=== PATIENT | female | born 1990 | race Caucasian/White ===

== ENCOUNTER 2019-01-16 23:03 | Emergency (ER) | payer OTHER, SELFPAY ==
[2019-01-16 23:05] VITALS: BP 166/104; PULSE 80; RESP 20; TEMP 36.8; O2SAT 100
--- NOTE | 2019-01-16 23:21 | ED.GENADULT ---
HPI - General Adult General Chief complaint: Abdominal Pain Stated complaint: poss allergic reaction to PLan B pill Time Seen by Provider: 01/16/19 23:04 Source: patient Mode of arrival: ambulatory Limitations: no limitations History of Present Illness HPI narrative: 28-year-old female took Plan B 3 days ago approximately 6 hours after having unprotected intercourse. Has had some cramping since then but no vaginal bleeding. Today she was having chills, body aches, not feeling well. She states she has taken a test since then they all have been negative. No urinary symptoms. Review of Systems Constitutional Reports chills, Reports fever(s) (Subjective), Denies headache(s) and Reports lethargy ENT Ears, Nose, Mouth, and Throat: Denies headache(s), Denies sinus pressure and Denies sore throat Cardiovascular Denies chest pain and Denies dyspnea Respiratory Denies dyspnea Gastrointestinal Gastrointestinal: Reports abdominal pain, Denies change in stool character, Reports cramping, Denies nausea and Denies vomiting Genitourinary Denies dysuria and Denies vaginal discharge Comments: Lower abdominal cramping Musculoskeletal Denies myalgias and Denies arthralgias Integumentary/Breasts Denies rash Neurologic Denies behavioral changes and Denies headache(s) Psychiatric Denies behavioral changes Hematologic/Lymphatic Denies easy bleeding and Denies easy bruising [facility] Medical History (Updated 01/17/19 @ 00:16 by Pola Dorsey DO) Patient denies medical problems (Acute) Surgical History No pertinent past surgical history (Acute) Social History Smoking Status: Current some day smoker Social History Smoking Status: Current some day smoker Exam Initial Vital Signs Initial Vital Signs: Vital Signs Temperature 98.2 F 01/16/19 23:05 Pulse Rate 80 01/16/19 23:05 Respiratory Rate 20 01/16/19 23:05 Blood Pressure 166/104 H 01/16/19 23:05 Pulse Oximetry 100 01/16/19 23:05 Const General: cooperative, well developed, well groomed and No acute distress Orientation: alert and awake HENMT Head: normal to inspection and normocephalic Ears: TM's normal bilaterally Mouth: oral mucosae normal Throat: posterior oropharynx normal Resp Effort & Inspection: normal respiratory effort Auscultation: clear to auscultation bilaterally Cardio Rate: regular rate Rhythm: regular rhythm Skin Lesions: no lesions Rashes: no rashes Neuro General: alert and awake Cognition: normal cognition Speech: speech normal Extrem General: normal to inspection and capillary refill normal Psych Appearance: grossly normal and well kempt Course Orders Ordered: ED Orders 01/16/19 23:25 HCG Quantitative Stat Vital Signs - 8 hr 01/16/19 23:05 Temperature 98.2 F Pulse Rate 80 Respiratory Rate 20 Blood Pressure 166/104 H Pulse Oximetry 100 Medical Decision Making Lab Data Lab results reviewed: Yes I reviewed the patient's lab results. Lab Results 01/16/19 Range/Units 23:25 HCG, Quant < 2.39 mIU/mL MDM Narrative Medical decision making narrative: HCG quant was negative. I informed her that the abdominal cramping is most likely result of the Plan B. Informed her that it would not be surprised if she starts to have some vaginal bleeding over the next day or so. Her presenting symptoms are vague in nature. She has no other signs of infection. Will hold on further workup for now. Patient was given return precautions. She expressed understanding and agreement plan. Discharge Plan Departure Patient Disposition: Home Clinical Impression: Abdominal cramping Instructions: Home and Clinic Tests Activity Restrictions/Additional Instructions: Recommend you contact your primary care doctor for follow-up. Return to the emergency department for any new or worsening symptoms
[2019-01-17 00:09] LABS: HCG Quantitative /Beta subunit < 2.39 mIU/mL
[2019-01-17 00:30] VITALS: BP 146/98; PULSE 80; RESP 18; O2SAT 97
== END 2019-01-17 00:30 | disposition home or self-care (01) ==
PROVIDERS: Emergency Provider Emergency Medicine
DX: R10.9 Unspecified abdominal pain (principal)
CPT/HCPCS: 36415; 84702; 99282

== ENCOUNTER 2019-04-24 15:07 | Emergency (ER) | payer OTHER, SELFPAY ==
[2019-04-24 15:20] VITALS: BP 160/94; PULSE 96; RESP 15; TEMP 36.9; O2SAT 99; BMI 36.9
--- NOTE | 2019-04-24 15:50 | ED.UPPEXIN ---
HPI - Extremity Injury (Upper) <JONH Mchugh - Last Filed: 04/24/19 16:25> General Chief Complaint: Extremity Injury, Upper Stated Complaint: SORE FINGER Time Seen by Provider: 04/24/19 15:32 Source: patient Mode of arrival: Ambulatory Limitations: no limitations History of Present Illness HPI narrative: The patient is a 28-year-old female current smoker who presents with a chief complaint of finger pain. Pain and swelling of her 3rd finger on the left side. She states happened several days ago. She rinsed it under cold water. She took ibuprofen last night. Denies any fevers nausea vomiting or diarrhea. She states that she can bend her finger, but it hurts because of the swelling at the tip. Related Data Home Medications Medication Instructions Recorded Confirmed clonidine HCl 0.1 mg PO DAILY 04/24/19 04/24/19 dextroamphetamine-amphetamine 20 mg PO DAILY 04/24/19 04/24/19 escitalopram oxalate 10 mg PO BEDTIME 04/24/19 04/24/19 norelgestromin-ethin.estradiol 1 patch TOPICAL QWEEK 04/24/19 04/24/19 [Xulane] Allergies Allergy/AdvReac Type Severity Reaction Status Date / Time lorazepam [From Ativan] Allergy Verified 04/24/19 15:20 Review of Systems <[facility] - Last Filed: 04/24/19 16:25> Review of Systems Narrative: GENERAL: Denies chills, fatigue, malaise, fever, sweats. HEENT: Denies sinus pain, ear pain, sore throat, difficulty swallowing, dizziness. RESPIRATORY: Denies dyspnea, cough, wheezing, hemoptysis, sputum. CARDIOVASCULAR: Denies chest pain, palpitations, orthopnea, edema, GASTROINTESTINAL: Denies nausea, vomiting, abdominal pain, diarrhea, constipation, melena. : Denies dysuria, frequency, incontinence, hematuria, urinary retention. MUSCULOSKELETAL: See HPI SKIN: See HPI NEUROLOGIC: Denies weakness, headache, numbness, change in speech, confusion, seizures, incoordination. PSYCHIATRIC: No concerning psychosocial issues. 12 point review of systems is negative except for those stated above PFSH <JONH Mchugh - Last Filed: 04/24/19 16:25> Medical History Patient denies medical problems (Acute) Surgical History No pertinent past surgical history (Acute) Social History Smoking Status: Current some day smoker Social History Smoking Status: Current some day smoker Exam <GARCIA Mchugh - Last Filed: 04/24/19 16:25> Narrative Exam Narrative: GENERAL: This is a well-nourished, well-developed patient, in no acute distress HEAD: Atraumatic. Normocephalic. No temporal or scalp tenderness. EYES: Pupils equal round and reactive. Extraocular motions intact. No scleral icterus. No injection or drainage. ENT: Nose without bleeding, purulent drainage or septal hematoma. Throat without erythema, tonsillar hypertrophy or exudate. Uvula midline. Airway patent. NECK: Trachea midline. No JVD or lymphadenopathy. Supple, nontender, no meningeal signs. CARDIOVASCULAR: Regular rate and rhythm RESPIRATORY: No cough. No increased respiratory effort. No accessory muscle use. EXTREMITIES: Full range of motion noted left 3rd finger. Capillary refill less than 2 seconds. BACK: Nontender without deformity or crepitance. No flank tenderness. NEURO: AOx3. SKIN: paronychia noted medial aspect left 3rd finger Initial Vital Signs Initial Vital Signs: Vital Signs Temperature 98.4 F 04/24/19 15:20 Pulse Rate 96 H 04/24/19 15:20 Respiratory Rate 15 04/24/19 15:20 Blood Pressure 160/94 H 04/24/19 15:20 Pulse Oximetry 99 04/24/19 15:20 <Venita Mcgraw DO - Last Filed: 04/27/19 07:12> Initial Vital Signs Initial Vital Signs: Vital Signs Temperature 98.4 F 04/24/19 15:20 Pulse Rate 96 H 04/24/19 15:20 Respiratory Rate 15 04/24/19 15:20 Blood Pressure 160/94 H 04/24/19 15:20 Pulse Oximetry 99 04/24/19 15:20 Course <Devi Burnett, [employer]-BC - Last Filed: 04/24/19 16:25> Vital Signs Vital signs: Vital Signs - 8 hr 04/24/19 15:20 04/24/19 16:24 Temperature 98.4 F Pulse Rate 96 H 74 Respiratory Rate 15 16 Blood Pressure 160/94 H 116/72 Pulse Oximetry 99 97 <Venita DO Lucien - Last Filed: 04/27/19 07:12> Vital Signs Vital signs: Vital Signs - 8 hr 04/24/19 15:20 04/24/19 16:24 Temperature 98.4 F Pulse Rate 96 H 74 Respiratory Rate 15 16 Blood Pressure 160/94 H 116/72 Pulse Oximetry 99 97 MDM - Extremity Injury (Upper) <Devi VerdeVINCE singh-BC - Last Filed: 04/24/19 16:25> MDM Narrative Medical decision making narrative: The patient is a 28-year-old female who presents with short-term pain and swelling of her left 3rd finger. She is noted to have a bring he on exam. Attempted to drain it by needle puncture, but was not able to get anything out. Encouraged [id number] medications rest ice compression elevation. Encouraged copious soaks in warm Epsom salts. Discussed monitor for signs of worsening infection including fever, vomiting, diarrhea, decreased range of motion. Encourage PCP follow-up and discussed return precautions the emergency department including shortness of breath, chest pain, acute concerns. Discharge Plan Departure Patient Disposition: Home Clinical Impression: Paronychia Discharge Date/Time: 04/24/19 16:05 Instructions: DI for Paronychia Activity Restrictions/Additional Instructions: Please soak your acute finger warm Epson salts several times a day. Please use rest ice compression elevation. Please use [id number] pain medications as needed and able. Please follow up with primary care Provider in a few days. Please come back to the emergency department for any acute concerns such as chest pain, shortness of breath etc Prescriptions: No Action clonidine HCl 0.1 mg tablet 0.1 mg PO DAILY RF: 0 dextroamphetamine-amphetamine 20 mg capsule,extended release 24hr 20 mg PO DAILY RF: 0 Xulane 150-35 mcg/24 hr patch weekly 1 patch topical QWEEK RF: 0 escitalopram oxalate 10 mg tablet 10 mg PO BEDTIME RF: 0 [facility]
[2019-04-24 16:24] VITALS: BP 116/72; PULSE 74; RESP 16; O2SAT 97
== END 2019-04-24 16:05 | disposition home or self-care (01) ==
PROVIDERS: Emergency Provider Nurse Practitioner Family
DX: L03.012 Cellulitis of left finger (principal)
CPT/HCPCS: 99282

== ENCOUNTER 2019-05-27 16:23 | Emergency (ER) | payer OTHER, SELFPAY ==
[2019-05-27 16:30] VITALS: BP 148/80; PULSE 101; RESP 16; BMI 38.7
[2019-05-27 16:44] VITALS: PULSE 110; RESP 18; TEMP 35.8; O2SAT 98
--- NOTE | 2019-05-27 16:51 | DI.US.S_ITS ---
PROCEDURE: US PELVIC COMPLETE INDICATIONS: INTERMENSTRUAL HEAVY BLEEDING TECHNIQUE: Real-time scanning was performed of the pelvic organs, with image documentation. Additional endovaginal scanning was necessary due to incomplete visualization of the adnexal and endometrial structures by transabdominal scanning. COMPARISON: None. FINDINGS: Transabdominal scanning: Limited scanning through the kidneys shows no hydronephrosis. No pathologic free abdominal or pelvic fluid. Splenomegaly is incidentally noted measuring 15.4 cm. Endovaginal scanning: Uterus: Uterus is normal in size at 8.1 x 4.4 x 5.5 cm. The endometrium measures 5 mm in combined thickness. Incidental note is made of nabothian cysts. Hypoechoic uterine lesions are seen, which are attributed to fibroids. The largest 3 measure as follows: Right posterior, subserosal, 1.3 x 0.8 x 1.5 cm Mid uterus posterior, subserosal, 1.4 x 1.2 x 1.4 cm Mid uterus posterior, subserosal, 1.4 x 1.3 x 1.6 Ovaries: The right ovary measures 3 x 1.7 x 2.1 cm. The left ovary measures 3.9 x 2.2 x 2.8 cm. The ovaries have a normal sonographic appearance. No adnexal masses are seen. IMPRESSION: Uterine fibroids are seen. Splenomegaly incidentally noted. Dictated by: Anders Aguilera M.D. on 05/27/2019 at 16:52 Approved by: Anders Aguilera M.D. on 05/27/2019 at 16:54
[2019-05-27 16:55] LABS: Bacteria Urine Few (2-10); Culture Indicated Urine Specimen Cultured; Mucus Urine 2+ (Negative); RBC Urine 10-30/HPF (0-5/HPF); Squamous Epithelial Cell Urine 1-5 /HPF (0-5/HPF); Transitional Epi Cells Urine 1-5/HPF (0-5/HPF); WBC Urine 10-30/HPF (0-5/HPF)
--- NOTE | 2019-05-27 17:00 | PC.NURSE ---
woke with blood on underwear this morning has changed one light panty liner. Arrives with larger absorbant pad which patient states has seconda day heavy period bleeding Reports a similar episode when she was 19 which she thinks may have been an early miscarriage but didn't seek medical attention. Reports A negative blood type. Denies dizziness.
[2019-05-27] MEDS: IBUPROFEN 400 MG TABLET 800 MG PO (17:10)
[2019-05-27] MEDS: ACETAMINOPHEN 325 MG TABLET 975 MG PO (17:10)
[2019-05-27 17:15] LABS: Add Manual Diff / Slide Review NO; Basophils Absolute Auto 0 /uL (0-100); Basophils Percent Auto 0.7 % (0-2); Eosinophils Absolute Auto 100 /uL (0-450); Eosinophils Percent Auto 1.2 % (2-4); Hematocrit 39.6 % (36-46); Hemoglobin 13.9 g/dL (12.0-16.0); Lymphocytes Absolute Auto 1300 /uL (1100-4500); Lymphocytes Percent Auto 21.5 % (25-40); Mean Corpuscular HGB Conc 35.2 % (30-36); Mean Corpuscular Hemoglobin 31.2 PG (26-34); Mean Corpuscular Volume 88.6 fL (80-100); Monocytes Absolute Auto 500 /uL (0-900); Monocytes Percent Auto 8.1 % (3-14); Neutrophils Absolute Auto 4300 /uL (1500-7000); Neutrophils Percent Auto 68.5 % (50-75); Platelet Count 203 X10^3/uL (150-400); Red Blood Cell Count 4.47 X10^6/uL (4.0-5.2); Red Cell Distribution Width 12.4 % (11.6-14.8); White Blood Cell Count 6.2 X10^3/uL (4.5-11.0)
--- NOTE | 2019-05-27 23:11 | ED_ITS ---
HPI - Female Genitourinary <SG Whitt - Last Filed: 05/27/19 23:35> General Chief complaint: Vaginal Bleeding Stated complaint: VAGINAL BLEEDING Time Seen by Provider: 05/27/19 16:28 Source: patient Mode of arrival: Ambulatory Limitations: no limitations History of Present Illness HPI Narrative: This is a 28 year female who has significant history of anxiety, depression, occasional smoker, who presents to ED with chief complain of abnormal vaginal bleeding and intermenstrual vaginal bleeding which started this morning as spotting. Patient reports LMP was 2 weeks ago and she has pretty regular cycle as 25-28 days. 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 Patient denies chest pain, breathing difficulty, lightheadedness. Patient reports low abdominal cramping with this. Patient currently uses control patch call, Margy. She is cur rently sexually active. Patient denies unusual vaginal discharge or urinary symptoms. 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 Patient had similar symptoms when she was 18 years old and thinks this was due to early miscarriage. Related Data Home Medications Medication Instructions Recorded Confirmed clonidine HCl 0.1 mg PO BEDTIME 04/24/19 05/27/19 dextroamphetamine-amphetamine 20 mg PO DAILY 04/24/19 05/27/19 escitalopram oxalate 10 mg PO BEDTIME 04/24/19 05/27/19 norelgestromin-ethin.estradiol 1 patch TOPICAL QWEEK 04/24/19 05/27/19 [Xulane] propranolol 10 mg PO BID PRN 05/27/19 05/27/19 Allergies Allergy/AdvReac Type Severity Reaction Status Date / Time lorazepam [From Ativan] Allergy Verified 05/27/19 16:30 Review of Systems <SG Whitt - Last Filed: 05/27/19 23:35> Review of Systems Narrative: General: Denies fever, chills, fatigue, malaise, sweats. HEENT: Denies sinus pain, ear pain, sore throat, difficulty swallowing, dizziness. Respiratory: Denies dyspnea, cough, wheezing, hemoptysis, sputum. Cardiovascular: Denies chest pain, palpitations, orthopnea, edema. Gastrointestinal: Denies nausea, vomiting, abdominal pain, diarrhea, constipation, melena. : See HPI Musculoskeletal: Denies weakness, joint pain or bony pain. Skin: Denies rash, skin lesions, or other. Neurologic: Denies weakness, headache, numbness, change in speech, confusion, seizures, incoordination. Psychiatric: No concerning psychosocial issues. 12-point review of systems is negative except for those stated above. Patient History <SG Whitt - Last Filed: 05/27/19 23:35> Surgical History (Updated 05/27/19 @ 23:19 by SG Whitt) H/O eye surgery (Acute) No pertinent past surgical history (Acute) tobacco type: vaping Substance Use Type: does not use Exam <SG Whitt - Last Filed: 05/27/19 23:35> Narrative Exam Narrative: General appearance: well developed, well nourished, in no acute distress. Head: normocephalic, atraumatic, no scalp lesions, non-tender. Eye: pupil equal, round. EOMI. Nose: nares patent. Oral: mucosa moist. Neck/Thyroid: neck supple, full range of motion, no visible masses. Skin: no suspicious rashes, lesions over visible areas. Warm and dry. Heart: no clubbing, no cyanosis, no edema. Lungs: Breathing even and unlabored. No stridor. No accessory muscles used. Chest: normal shape and expansion. Abdomen: Soft, non painful to palpate, non-distended. Neurologic: alert and oriented. Cognitive exam, MANAGER HYDRAULIC and PNS grossly intact on informal exam. Psych: good eye contact, normal affect. Initial Vital Signs Initial Vital Signs: Vital Signs Pulse Rate 101 H 05/27/19 16:30 Respiratory Rate 16 05/27/19 16:30 Blood Pressure 148/80 H 05/27/19 16:30 <Pola Dorsey DO - Last Filed: 05/28/19 07:06> Initial Vital Signs Initial Vital Signs: Vital Signs Pulse Rate 101 H 05/27/19 16:30 Respiratory Rate 16 05/27/19 16:30 Blood Pressure 148/80 H 05/27/19 16:30 Scores <SG Whitt - Last Filed: 05/27/19 23:35> GCS Jerry coma scale eye opening: Spontaneous [place] coma scale verbal response: Orientated Jerry coma scale motor response: Obey commands [place] coma scale total score: 15 Course <SG Whitt - Last Filed: 05/27/19 23:35> Orders Ordered: Discontinued Medications Acetaminophen (Tylenol) 975 mg PO NOW ONE Stop: 05/27/19 16:51 Last Admin: 05/27/19 17:10 Dose: 975 mg Documented by: LAVONNE Ibuprofen (Advil) 800 mg PO NOW ONE Stop: 05/27/19 16:51 Last Admin: 05/27/19 17:10 Dose: 800 mg Documented by: LAVONNE Vital Signs Vital signs: Vital Signs - 8 hr 05/27/19 16:30 05/27/19 16:44 Temperature 96.5 F L Pulse Rate 101 H 110 H Respiratory Rate 16 18 Blood Pressure 148/80 H Pulse Oximetry 98 <Pola Dorsey DO - Last Filed: 05/28/19 07:06> Orders Ordered: Discontinued Medications Acetaminophen (Tylenol) 975 mg PO NOW ONE Stop: 05/27/19 16:51 Last Admin: 05/27/19 17:10 Dose: 975 mg Documented by: LAVONNE Ibuprofen (Advil) 800 mg PO NOW ONE Stop: 05/27/19 16:51 Last Admin: 05/27/19 17:10 Dose: 800 mg Documented by: LAVONNE Vital Signs Vital signs: Vital Signs - 8 hr 05/27/19 16:30 05/27/19 16:44 Temperature 96.5 F L Pulse Rate 101 H 110 H Respiratory Rate 16 18 Blood Pressure 148/80 H Pulse Oximetry 98 MDM - Female Genitourinary <SG Whitt - Last Filed: 05/27/19 23:35> Differential Diagnosis Differential diagnosis: Likely ovarian cyst, ruptured ovarian cyst and other (Uterine fibroids, irregular menses, ectopic ) Medical Records Attestation: I reviewed the patient's medical records. Lab Data Attestation: I reviewed the patient's lab results. Result diagrams: 05/27/19 17:09 Labs: Lab Results 05/27/19 05/27/19 Range/Units 16:47 17:09 WBC 6.2 (4.5-11.0) X10^3/uL RBC 4.47 (4.0-5.2) X10^6/uL Hgb 13.9 (12.0-16.0) g/dL Hct 39.6 (36-46) % MCV 88.6 (80-100) fL MCH 31.2 (26-34) PG MCHC 35.2 (30-36) % RDW 12.4 (11.6-14.8) % Plt Count 203 (150-400) X10^3/uL Neut % (Auto) 68.5 (50-75) % Lymph % (Auto) 21.5 L (25-40) % [place] % (Auto) 8.1 (3-14) % Eos % (Auto) 1.2 L (2-4) % Baso % (Auto) 0.7 (0-2) % Neut # (Auto) 4300 (3826-1196) /uL Lymph # (Auto) 1300 (9189-9684) /uL [place] # (Auto) 500 (0-900) /uL Eos # (Auto) 100 (0-450) /uL Baso # (Auto) 0 (0-100) /uL Urine RBC 10-30/hpf H (0-5/HPF) Urine WBC 10-30/hpf H (0-5/HPF) Ur Squamous Epith Cells 1-5 /hpf (0-5/HPF) Ur Transition Epith Cell 1-5/hpf (0-5/HPF) Urine Bacteria Few (2-10) H (None) Urine Mucus 2+ H (Negative) Ur Culture Indicated? Specimen cultured Point of Care Testing Test Results Negative Urine Dip Bedside Urine Glucose Negative Bedside Urine Bilirubin - Negative Bedside Urine Ketone - Negative Urine Specific [place] 1.020 Bedside Urine Occult Blood +++ Bedside Urine pH 6.0 Bedside Urine Protein +/- 15 Bedside Urine Urobilinogen +/- 1mg Bedside Urine Nitrite - Negative Bedside Urine Leukocytes ++ 125 Esterase Imaging Data US-Pelvic: Radiologist's impression: [address] [address] Ultrasound Report Signed Patient: Devi Key GMR#: [id number] : 1990Acct:[id number] Age/Sex: 28 / FDate of Service: 05/27/19 Loc: ED Accession Number: [id number] Procedure: US pelvic complete Ordering Provider: Freddy Gray PROCEDURE: US PELVIC COMPLETE INDICATIONS: INTERMENSTRUAL HEAVY BLEEDING TECHNIQUE: Real-time scanning was performed of the pelvic organs, with image documentation. Additional endovaginal scanning was necessary due to incomplete visualization of the adnexal and endometrial structures by transabdominal scanning. COMPARISON: None. FINDINGS: Transabdominal scanning: Limited scanning through the kidneys shows no hydronephrosis. No pathologic free abdominal or pelvic fluid. Splenomegaly is incidentally noted measuring 15.4 cm. Endovaginal scanning: Uterus: Uterus is normal in size at 8.1 x 4.4 x 5.5 cm. The endometrium measures 5 mm in combined thickness. Incidental note is made of nabothian cysts. Hypoechoic uterine lesions are seen, which are attributed to fibroids. The largest 3 measure as follows: Right posterior, subserosal, 1.3 x 0.8 x 1.5 cm Mid uterus posterior, subserosal, 1.4 x 1.2 x 1.4 cm Mid uterus posterior, subserosal, 1.4 x 1.3 x 1.6 Ovaries: The right ovary measures 3 x 1.7 x 2.1 cm. The left ovary measures 3.9 x 2.2 x 2.8 cm. The ovaries have a normal sonographic appearance. No adnexal masses are seen. IMPRESSION: Uterine fibroids are seen. Splenomegaly incidentally noted. Dictated by: Anders Aguilera M.D. on 05/27/2019 at 16:52 Approved by: Anders Aguilera M.D. on 05/27/2019 at 16:54 [facility] Narrative Medical decision making narrative: This is 28-year-old female who presents to ED with intermenstrual vaginal bleeding with low abdominal cramping which started this morning with a symptomatic findings. Patient reports current vaginal bleeding is little heavier than her heaviest 2nd day menses. Patient's urine test was negative. Urine POC test showed negative nitrite with ++ leukocytes esterase. Urine micro tests showed 2+ mucus with urine bacteria, WBC and RBC and urine is being cultured at this time and patient was not treated with antibiotic medications at this time. H&H today was stable. Pelvic ultrasound test showed 3 fibroids located in subserosal area. Bilateral ovaries are normal in sonographic appearance without adnexal masses within normal uterus in size. Incidental splenomegaly was noted. Findings were discussed with the patient and patient advised to take xiol-yld-xumznge Tylenol and Motrin as needed for cramping discomfort. Patient advised to monitor her vaginal bleeding and return precautions were discussed with the patient. Patient advised to follow up with her primary care physician and then a referral to navigating officer specialist may warrant if she noticed frequent or heavy vaginal bleeding. Patient verbalized understanding and agrees with the treatment plan. Patient reports her abdominal cramping had improved. <Pola Dorsey, DO - Last Filed: 05/28/19 07:06> Lab Data Labs: Lab Results 05/27/19 05/27/19 Range/Units 16:47 17:09 WBC 6.2 (4.5-11.0) X10^3/uL RBC 4.47 (4.0-5.2) X10^6/uL Hgb 13.9 (12.0-16.0) g/dL Hct 39.6 (36-46) % MCV 88.6 (80-100) fL MCH 31.2 (26-34) PG MCHC 35.2 (30-36) % RDW 12.4 (11.6-14.8) % Plt Count 203 (150-400) X10^3/uL Neut % (Auto) 68.5 (50-75) % Lymph % (Auto) 21.5 L (25-40) % [place] % (Auto) 8.1 (3-14) % Eos % (Auto) 1.2 L (2-4) % Baso % (Auto) 0.7 (0-2) % Neut # (Auto) 4300 (2397-9730) /uL Lymph # (Auto) 1300 (6695-7224) /uL [place] # (Auto) 500 (0-900) /uL Eos # (Auto) 100 (0-450) /uL Baso # (Auto) 0 (0-100) /uL Urine RBC 10-30/hpf H (0-5/HPF) Urine WBC 10-30/hpf H (0-5/HPF) Ur Squamous Epith Cells 1-5 /hpf (0-5/HPF) Ur Transition Epith Cell 1-5/hpf (0-5/HPF) Urine Bacteria Few (2-10) H (None) Urine Mucus 2+ H (Negative) Ur Culture Indicated? Specimen cultured Point of Care Testing Test Results Negative Urine Dip Bedside Urine Glucose Negative Bedside Urine Bilirubin - Negative Bedside Urine Ketone - Negative Urine Specific [place] 1.020 Bedside Urine Occult Blood +++ Bedside Urine pH 6.0 Bedside Urine Protein +/- 15 Bedside Urine Urobilinogen +/- 1mg Bedside Urine Nitrite - Negative Bedside Urine Leukocytes ++ 125 Esterase Discharge Plan Departure Patient Disposition: Home Clinical Impression: Vaginal bleeding Fibroid, uterine Qualifiers: Uterine leiomyoma location: subserous Qualified Code(s): D25.2 - Subserosal leiomyoma of uterus Discharge Date/Time: 05/27/19 18:51 Instructions: DI for Uterine Fibroids, DI for Vaginal Bleeding Activity Restrictions/Additional Instructions: You have been diagnosed with [intermenstrual vaginal bleeding and 3 uterine fibroids. Your blood count looks good today. Pelvic ultrasound shows 3 uterine fibroids.]. What to do: *Take your medications as directed. You can take ibuprofen or other type of NSAIDS for cramping discomfort and bleeding. You can take 600-800 mg ibuprofen 3 times a day with food. *Follow up with your primary care provider in 2-3 days, call for an appointment. You may need a referral to [facility] specialist if you're pelvic bleeding continues. Let them know you were seen in the ED and that we asked you to be seen in follow up. *Return to ED if you have any new, worsening, or concerning symptoms, such as [chest pain, breathing difficulty, unable to tolerate fluids, heavy menstrual bleeding that you need to change superpads every hour for 3 hours consecutively or any acute concerns]. Prescriptions: No Action clonidine HCl 0.1 mg tablet 0.1 mg PO BEDTIME RF: 0 dextroamphetamine-amphetamine 20 mg capsule,extended release 24hr 20 mg PO DAILY RF: 0 Xulane 150-35 mcg/24 hr patch weekly 1 patch topical QWEEK RF: 0 escitalopram oxalate 10 mg tablet 10 mg PO BEDTIME RF: 0 propranolol 10 mg tablet 10 mg PO BID PRN (Reason: Anxiety) RF: 0 Referrals: [facility] [Outside] <Pola Dorsey DO - Last Filed: 05/28/19 07:06> Sign Out Provider Sign Out Attestation: Dr Dorsey Co-Sign Statement: I was available for consultation during this patient's emergency department visit. This chart is signed by myself for administrative purposes only. I did not have direct contact with this patient during this visit. They were seen independently by the APC.
== END 2019-05-27 18:51 | disposition home or self-care (01) ==
PROVIDERS: Emergency Provider Nurse Practitioner Family
DX: N93.9 Abnormal uterine and vaginal bleeding, unspecified (principal); D25.2 Subserosal leiomyoma of uterus; R10.30 Lower abdominal pain, unspecified
CPT/HCPCS: 36415; 76830; 76856; 81003; 81015; 81025; 85025; 87086; 99283; 99284